=== PATIENT | female | born 1975 | race Caucasian/White ===

== ENCOUNTER 2019-09-26 19:34 | Emergency (ER) | payer BC ==
--- NOTE | 2019-09-26 20:24 | EDM.PDOC ---
ED HPI GENERAL MEDICAL PROBLEM - General Chief Complaint: Headache Stated Complaint: fever Time Seen by Provider: 09/26/19 19:48 Source of Information: Reports: Patient History Limitations: Reports: No Limitations - History of Present Illness INITIAL COMMENTS - FREE TEXT/NARRATIVE: TRIAGE NOTE -- Pt presents to ER for c/o fever and migraine headache. Pt is afebrile at presentation. Pt reports that Migraine is going on day #3. [ End ] Above-noted. Apparently long history of migraines. Takes medications for chronic management of this however she does not have Maxalt or similar medication to use acutely. Has not taken any medications other than her chronic medications in an effort to moderate the headache. It is associated with some nausea and photophobia. She did say she had a fever at home earlier today but details are a bit hazy. There is been no cough or other respiratory symptoms sore throat or other symptom of acute illness otherwise. She was treated for a urinary tract infection with the last dose of antibiotic 3 days ago. Does not know the name of antibiotic but it was taking it twice a day. She says she still feels a little "tingling" on void. No back pain or flank pain. Patient has not taken Tylenol ibuprofen or any other antipyretic for her fever. Noted to be afebrile on arrival. She has not taken an NSAID for her headache either. Frontal Headache Pain Score (Numeric/FACES): 7 - Related Data Allergies Allergy/AdvReac Type Severity Reaction Status Date / Time diphenhydramine Allergy Severe Other Verified 09/26/19 19:48 [From Benadryl] divalproex sodium Allergy Severe Hallucinati Verified 09/26/19 19:48 [From Depakote] ons prednisone Allergy Severe Other Verified 09/26/19 19:48 Home Meds: Home Meds Ascorbic Acid/Multivit-Min [Emergen-C 1,000 mg Packet] 1 pack PO DAILY 09/26/19 [History] Biotin/Keratin [Biotin Plus Keratin Tablet] 1 tab PO DAILY 09/26/19 [History] Cyclobenzaprine [Flexeril] 1 tab PO DAILY 09/26/19 [History] FLUoxetine [PROzac] 1 cap PO DAILY 09/26/19 [History] Famotidine 1 tab PO DAILY 09/26/19 [History] Gabapentin [Neurontin] 1 tab PO DAILY 09/26/19 [History] Magnesium Oxide [Magnesium] 1 tab PO DAILY 09/26/19 [History] Melatonin 1 tab PO BEDTIME 09/26/19 [History] Mv-Mn/Iron/Folic Acid/Herb 190 [Vitamin D3 Complete Caplet] 1 tab PO DAILY 09/25 [History] Nabumetone [Relafen Ds] 1 tab PO DAILY 09/26/19 [History] Naltrexone 1 tab PO DAILY 09/26/19 [History] Pantoprazole [ProTONIX] 1 tab PO DAILY 09/26/19 [History] Psyllium Husk 1 gram PO DAILY 09/26/19 [History] Thyroid [[place] Thyroid] 1 tab PO DAILY 09/26/19 [History] Topiramate 1 tab PO DAILY 09/26/19 [History] Vitamin B Complex [B Complex] 1 tab PO DAILY 09/26/19 [History] buPROPion [Wellbutrin SR] 1 tab PO DAILY 09/26/19 [History] lamoTRIgine [Lamotrigine ER] 1 tab PO DAILY 09/26/19 [History] rOPINIRole [Requip] 1 tab PO BEDTIME 09/26/19 [History] tiZANidine [Zanaflex] 1 tab PO DAILY PRN 09/26/19 [History] Past Medical History HEENT History: Reports: Impaired Vision Gastrointestinal History: Reports: GERD, Other (See Below) Other Gastrointestinal History: Abdominal Hernia 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: , 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 Musculoskeletal History: Reports: Fibromyalgia Neurological History: Reports: Migraines Psychiatric History: Reports: Anxiety, Bipolar, Depression Endocrine/Metabolic History: Reports: Hypothyroidism Dermatologic History: Reports: Eczema - Past Surgical History HEENT Surgical History: Reports: Oral Surgery Social & Family History - Family History Family Medical History: Noncontributory - Tobacco Use Smoking Status *Q: Never Smoker Second Hand Smoke Exposure: No - Caffeine Use Caffeine Use: Reports: Coffee - Recreational Drug Use Recreational Drug Use: Yes Drug Use in Last 12 Months: Yes Recreational Drug Type: Reports: Marijuana/Hashish Other Recreational Drug Type: Medical Marijuana Recreational Drug Use Frequency: Monthly ED ROS GENERAL - Review of Systems Review Of Systems: Comprehensive ROS is negative, except as noted in HPI. - Physical Exam Exam: See Below Exam Limited By: No Limitations General Appearance: Alert, WD/WN, No Apparent Distress, Other (Appears photophobic) Eye Exam: Bilateral Eye: EOMI, PERRL Ears: Normal External Exam Nose: Normal Inspection Throat/Mouth: Normal Inspection Head Exam: Atraumatic, Normocephalic Neck: Normal Inspection, Supple, Non-Tender, Full Range of Motion Respiratory/Chest: No Respiratory Distress, Lungs Clear, Normal Breath Sounds Cardiovascular: Regular Rate, Rhythm GI/Abdominal: Soft, Non-Tender Neuro Exam (Abbreviated): Alert, Oriented, Normal Cognition, No Motor/Sensory Deficits Back Exam: Normal Inspection. No: CVA Tenderness (L), CVA Tenderness (R) Extremities: Normal Inspection, Non-Tender Psychiatric: Normal Affect, Normal Mood Skin Exam: Warm, Dry Course - Vital Signs Last Recorded V/S: Last Vital Signs Temp 36.8 C 09/26/19 19:43 Pulse 86 09/26/19 19:43 Resp 20 09/26/19 19:43 BP 130/88 09/26/19 19:43 Pulse Ox 96 09/26/19 19:43 - Orders/Labs/Meds Orders: Active Orders 24 hr Category Date Time Status CULTURE BLOOD [BC] Stat Lab 09/26/19 20:47 Received CULTURE BLOOD [BC] Stat Lab 09/26/19 20:58 Received Sodium Chloride 0.9% [Normal Saline] 1,000 ml Med 09/26/19 20:45 Active IV ASDIRECTED Blood Culture x2 Reflex Set [OM.PC] Stat Oth 09/26/19 20:30 Ordered Medication Orders Sodium Chloride (Normal Saline) 1,000 mls @ 150 mls/hr IV ASDIRECTED CRISTHIAN Last Admin: 09/26/19 20:55 Dose: 150 mls/hr Labs: Laboratory Tests 09/26/19 09/26/19 09/26/19 Range/Units 20:58 20:58 21:28 WBC 6.23 (3.98-10.04) K/mm3 RBC 4.86 (3.98-5.22) M/mm3 Hgb 15.0 (11.2-15.7) gm/dl Hct 45.1 H (34.1-44.9) % MCV 92.8 (79.4-94.8) fl MCH 30.9 (25.6-32.2) pg MCHC 33.3 (32.2-35.5) g/dl RDW Std Deviation 43.6 (36.4-46.3) fL Plt Count 218 (182-369) K/mm3 MPV 9.4 (9.4-12.3) fl Neutrophils % (Manual) 87 H (40-60) % Band Neutrophils % 0 (0-10) % Lymphocytes % (Manual) 7 L (20-40) % Atypical Lymphs % 0 % Monocytes % (Manual) 3 (2-10) % Eosinophils % (Manual) 2 (0.7-5.8) % Basophils % (Manual) 1 (0.1-1.2) Platelet Estimate Adequate RBC Morph Comment Normal Sodium 136 (136-145) mEq/L Potassium 3.9 (3.5-5.1) mEq/L Chloride 101 (98-107) mEq/L Carbon Dioxide 24 (21-32) mEq/L Anion Gap 14.9 (5-15) BUN 9 (7-18) mg/dL Creatinine 1.1 H (0.55-1.02) mg/dL Est Cr Clr Drug Dosing 69.63 mL/min Estimated GFR (MDRD) 54 (>60) mL/min BUN/Creatinine Ratio 8.2 L (14-18) Glucose 120 H (74-106) mg/dL Calcium 9.4 (8.5-10.1) mg/dL Total Bilirubin 0.5 (0.2-1.0) mg/dL AST 42 H (15-37) U/L ALT 40 (14-59) U/L Alkaline Phosphatase 111 (46-116) U/L C-Reactive Protein 1.7 H* (<1.0) mg/dL Total Protein 8.3 H (6.4-8.2) g/dl Albumin 4.1 (3.4-5.0) g/dl Globulin 4.2 gm/dL Albumin/Globulin Ratio 1.0 (1-2) Urine Color Yellow (Yellow) Urine Appearance Clear (Clear) Urine pH 8.5 H (5.0-8.0) Ur Specific [place] 1.020 (1.005-1.030) Urine Protein Negative (Negative) Urine Glucose (UA) Negative (Negative) Urine Ketones Negative (Negative) Urine Occult Blood Negative (Negative) Urine Nitrite Negative (Negative) Urine Bilirubin Negative (Negative) Urine Urobilinogen 1.0 (0.2-1.0) Ur Leukocyte Esterase Negative (Negative) Urine Opiates Screen (GTFTZX=191) Ur Buprenorphine Scrn (CUTOFF=10) Ur Oxycodone Screen (UBD5NW=015) Urine Methadone Screen (RXYSBK=501) Ur Propoxyphene Screen (WBPOUC=093) Ur Barbiturates Screen (EKSMBF=850) Ur Tricyclics Screen (NSKBSN=736) Ur Phencyclidine Scrn (CUTOFF=25) Ur Amphetamine Screen (UAAXVW=202) U Methamphetamines Scrn (OIKLYC=162) U Benzodiazepines Scrn (XLTUFP=656) U Cocaine Metab Screen (XTDWYO=726) U Marijuana (THC) Screen (CUTOFF=50) 09/26/19 Range/Units 21:28 WBC (3.98-10.04) K/mm3 RBC (3.98-5.22) M/mm3 Hgb (11.2-15.7) gm/dl Hct (34.1-44.9) % MCV (79.4-94.8) fl MCH (25.6-32.2) pg MCHC (32.2-35.5) g/dl RDW Std Deviation (36.4-46.3) fL Plt Count (182-369) K/mm3 MPV (9.4-12.3) fl Neutrophils % (Manual) (40-60) % Band Neutrophils % (0-10) % Lymphocytes % (Manual) (20-40) % Atypical Lymphs % % Monocytes % (Manual) (2-10) % Eosinophils % (Manual) (0.7-5.8) % Basophils % (Manual) (0.1-1.2) Platelet Estimate RBC Morph Comment Sodium (136-145) mEq/L Potassium (3.5-5.1) mEq/L Chloride (98-107) mEq/L Carbon Dioxide (21-32) mEq/L Anion Gap (5-15) BUN (7-18) mg/dL Creatinine (0.55-1.02) mg/dL Est Cr Clr Drug Dosing mL/min Estimated GFR (MDRD) (>60) mL/min BUN/Creatinine Ratio (14-18) Glucose (74-106) mg/dL Calcium (8.5-10.1) mg/dL Total Bilirubin (0.2-1.0) mg/dL AST (15-37) U/L ALT (14-59) U/L Alkaline Phosphatase (46-116) U/L C-Reactive Protein (<1.0) mg/dL Total Protein (6.4-8.2) g/dl Albumin (3.4-5.0) g/dl Globulin gm/dL Albumin/Globulin Ratio (1-2) Urine Color (Yellow) Urine Appearance (Clear) Urine pH (5.0-8.0) Ur Specific [place] (1.005-1.030) Urine Protein (Negative) Urine Glucose (UA) (Negative) Urine Ketones (Negative) Urine Occult Blood (Negative) Urine Nitrite (Negative) Urine Bilirubin (Negative) Urine Urobilinogen (0.2-1.0) Ur Leukocyte Esterase (Negative) Urine Opiates Screen Negative (DJOJCJ=360) Ur Buprenorphine Scrn Negative (CUTOFF=10) Ur Oxycodone Screen Negative (YUY2ZR=129) Urine Methadone Screen Negative (NIHOSW=335) Ur Propoxyphene Screen Negative (DJCYZQ=859) Ur Barbiturates Screen Negative (YKSTVV=471) Ur Tricyclics Screen Negative (INIKEU=857) Ur Phencyclidine Scrn Negative (CUTOFF=25) Ur Amphetamine Screen Negative (UQBJRX=600) U Methamphetamines Scrn Negative (QICOWY=031) U Benzodiazepines Scrn Negative (FYDAHK=345) U Cocaine Metab Screen Negative (FRKMUO=554) U Marijuana (THC) Screen Negative (CUTOFF=50) Meds: Medications Generic Name Dose Route Start Last Admin Trade Name Freq PRN Reason Stop Dose Admin Sodium Chloride 1,000 mls @ 150 mls/hr 09/26/19 20:45 09/26/19 20:55 Normal Saline IV 150 mls/hr ASDIRECTED CRISTHIAN Administration Discontinued Medications Generic Name Dose Route Start Last Admin Trade Name Freq PRN Reason Stop Dose Admin Lorazepam 2 mg 09/26/19 22:16 09/26/19 22:22 Ativan IVPUSH 09/26/19 22:17 2 mg ONETIME ONE Administration Metoclopramide HCl 10 mg 09/26/19 20:34 09/26/19 20:55 Reglan IVPUSH 09/26/19 20:35 10 mg ONETIME ONE Administration Metoclopramide HCl 10 mg 09/26/19 21:32 09/26/19 21:37 Reglan IVPUSH 09/26/19 21:33 10 mg ONETIME ONE Administration - Re-Assessments/Exams Free Text/Narrative Re-Assessment/Exam: 09/26/19 22:40 The patient received 210 mg doses of Reglan with resolution of her headache. She asked for something for anxiety and Ativan was given prior to discharge. Discussed fully with patient and her fitness center attendant. There is no evidence of a nidus of infection. There is been no fever in the ER. No salient lab abnormals except for mild elevation of C-reactive protein and a slight left shift without bandemia and normal white count on the CBC. Chest x-ray negative. Urinalysis does not reflect any evidence of UTI. Instructions to patient and fitness center attendant below. Patient will be staying with her fitness center attendant at least for tonight and will be observed closely. Departure - Departure Time of Disposition: 22:41 Disposition: Home, Self-Care 01 Condition: Good Clinical Impression: History of fever, Anxiety Headache Qualifiers: Headache type: unspecified Headache chronicity pattern: acute headache Intractability: not intractable Qualified Code(s): R51 - Headache - Discharge Information *PRESCRIPTION DRUG MONITORING PROGRAM REVIEWED*: Not Applicable *COPY OF PRESCRIPTION DRUG MONITORING REPORT IN PATIENT TAB: Not Applicable Referrals: Sue Blevins PA-C [Primary Care Provider] - Forms: ED Department Discharge Additional Instructions: You have a history of fever and have been treated for a headache. There is no sign of any infectious process producing a fever and you did not have a fever in the emergency department. White blood count is normal on the CBC. Urinalysis is normal. Chest x-ray is negative. Physical exam not suggestive of any acute infectious process. However if there is a subsequent fever that is a temperature of 100 or greater return to the ER immediately. Return for any cough pain on urination or any troubling symptom you may have. Recommend close follow-up by primary. Sepsis Event Note (ED) - Evaluation Sepsis Screening Result: No Definite Risk - Focused Exam Vital Signs: Vital Signs Temp Pulse Resp BP Pulse Ox 09/26/19 19:43 36.8 C 86 20 130/88 96 - My Orders Last 24 Hours: My Active Orders 09/26/19 20:30 Blood Culture x2 Reflex Set [OM.PC] Stat 09/26/19 20:45 Sodium Chloride 0.9% [Normal Saline] 1,000 ml IV ASDIRECTED 09/26/19 20:47 CULTURE BLOOD [BC] Stat 09/26/19 20:58 CULTURE BLOOD [BC] Stat - Assessment/Plan Last 24 Hours: My Active Orders 09/26/19 20:30 Blood Culture x2 Reflex Set [OM.PC] Stat 09/26/19 20:45 Sodium Chloride 0.9% [Normal Saline] 1,000 ml IV ASDIRECTED 09/26/19 20:47 CULTURE BLOOD [BC] Stat 09/26/19 20:58 CULTURE BLOOD [BC] Stat
[2019-09-26] MEDS ORDERED: Metoclopramide 10 MG/2 ML SDV IVPUSH ONE ×2 (20:34→21:32)
[2019-09-26] MEDS ORDERED: Sodium Chloride 0.9% 1,000 ML IV SCH (20:45)
--- NOTE | 2019-09-26 21:11 | CR ---
Chest: Portable view of the chest was obtained. Comparison: No previous chest imaging. Heart size and mediastinum are normal. Lungs are clear with no acute parenchymal change. Bony structures shows minimal scoliosis within the spine. Impression: 1. Nothing acute is appreciated on portable chest x-ray. Diagnostic code #1 This report was dictated in MDT
[2019-09-26] MEDS ORDERED: LORazepam 2 MG/ML SDV IVPUSH ONE (22:16)
== END 2019-09-26 23:00 | disposition home or self-care (01) ==
LOC: JD.ED 19:34
DX: R51 Headache (principal); F41.9 Anxiety disorder, unspecified; Z88.8 Allergy status to other drugs, medicaments and biological substances; Z79.899 Other long term (current) drug therapy; K21.9 Gastro-esophageal reflux disease without esophagitis; F31.9 Bipolar disorder, unspecified
CPT/HCPCS: 36415; 71045; 80053; 80306; 81003; 85007; 85027; 86140; 87040; 96374; 96375; 96376; 99284; J2060; J2765; J7030

== ENCOUNTER 2019-09-29 09:27 | Emergency (ER) | payer BC ==
--- NOTE | 2019-09-29 09:50 | EDM.PDOC ---
ED HPI GENERAL MEDICAL PROBLEM - General Chief Complaint: Headache Stated Complaint: MIGRAINE Time Seen by Provider: 09/29/19 09:45 - History of Present Illness INITIAL COMMENTS - FREE TEXT/NARRATIVE: 44-year-old female presents the emergency room with a continued migraine headache. This headache is now been going on 6 or 7 days. She was seen here 2 days ago treated with Ativan 2 mg Reglan 10 mg x 2 and did a little bit better she went home and got some rest but the headache did not resolve she was seen in the clinic yesterday and was given Toradol 60 mg IM and a prescription for Zofran and advised to fish bait picker some riboflavin. They did fish bait picker the riboflavin however they did not get the prescription for the Zofran filled. The patient takes medication to help prevent these headaches. It just states that she takes Relafen in her med list however she has not taken this in quite a long time. This headache is associated with photophobia significant nausea occasional vomiting and she just generally feels awful at this point the headache seems to be more generalized and cannot get a clear history to decide which side is worse. Headache Pain Score (Numeric/FACES): 8 - Related Data Allergies Allergy/AdvReac Type Severity Reaction Status Date / Time diphenhydramine Allergy Severe Other Verified 09/29/19 09:42 [From Benadryl] divalproex sodium Allergy Severe Hallucinati Verified 09/29/19 09:42 [From Depakote] ons prednisone Allergy Severe Other Verified 09/29/19 09:42 Home Meds: Home Meds Ascorbic Acid/Multivit-Min [Emergen-C 1,000 mg Packet] 1 pack PO DAILY 09/26/19 [History] Biotin/Keratin [Biotin Plus Keratin Tablet] 1 tab PO DAILY 09/26/19 [History] Cyclobenzaprine [Flexeril] 1 tab PO DAILY 09/26/19 [History] FLUoxetine [PROzac] 1 cap PO DAILY 09/26/19 [History] Famotidine 1 tab PO DAILY 09/26/19 [History] Gabapentin [Neurontin] 1 tab PO DAILY 09/26/19 [History] Magnesium Oxide [Magnesium] 1 tab PO DAILY 09/26/19 [History] Melatonin 1 tab PO BEDTIME 09/26/19 [History] Mv-Mn/Iron/Folic Acid/Herb 190 [Vitamin D3 Complete Caplet] 1 tab PO DAILY 09/25 [History] Nabumetone [Relafen Ds] 1 tab PO DAILY 09/26/19 [History] Naltrexone 1 tab PO DAILY 09/26/19 [History] Pantoprazole [ProTONIX] 1 tab PO DAILY 09/26/19 [History] Psyllium Husk 1 gram PO DAILY 09/26/19 [History] Thyroid [[place] Thyroid] 1 tab PO DAILY 09/26/19 [History] Topiramate 1 tab PO DAILY 09/26/19 [History] Vitamin B Complex [B Complex] 1 tab PO DAILY 09/26/19 [History] buPROPion [Wellbutrin SR] 1 tab PO DAILY 09/26/19 [History] lamoTRIgine [Lamotrigine ER] 1 tab PO DAILY 09/26/19 [History] rOPINIRole [Requip] 1 tab PO BEDTIME 09/26/19 [History] tiZANidine [Zanaflex] 1 tab PO DAILY PRN 09/26/19 [History] Past Medical History HEENT History: Reports: Impaired Vision Gastrointestinal History: Reports: GERD Other Gastrointestinal History: Abdominal Hernia 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: , 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 Musculoskeletal History: Reports: Fibromyalgia Neurological History: Reports: Migraines Psychiatric History: Reports: Anxiety, Bipolar, Depression Endocrine/Metabolic History: Reports: Hypothyroidism Dermatologic History: Reports: Eczema - Past Surgical History HEENT Surgical History: Reports: Oral Surgery Social & Family History - Family History Family Medical History: Noncontributory - Tobacco Use Smoking Status *Q: Never Smoker - Caffeine Use Caffeine Use: Reports: Coffee - Recreational Drug Use Recreational Drug Use: No ED ROS GENERAL - Review of Systems Review Of Systems: See Below Constitutional: Reports: Fever (She complains of fevers when she was seen here 2 nights ago however no recent fever activity) HEENT: Reports: No Symptoms Respiratory: Reports: No Symptoms Cardiovascular: Reports: No Symptoms Endocrine: Reports: No Symptoms GI/Abdominal: Reports: Nausea, Vomiting, Other (She gets a little bit of discomfort before and after vomiting). Denies: Abdominal Pain, Constipation, Diarrhea : Reports: No Symptoms Musculoskeletal: Reports: No Symptoms. Denies: Neck Pain Skin: Reports: No Symptoms Neurological: Reports: Headache Psychiatric: Reports: Anxiety (Mild) Hematologic/Lymphatic: Reports: No Symptoms Immunologic: Reports: No Symptoms - Physical Exam Exam: See Below Exam Limited By: Other (She is photophobic and a little slow to respond) General Appearance: Moderate Distress (From the nausea however she is cooperative during the course the exam) Eye Exam: Bilateral Eye: EOMI, Normal Inspection, PERRL Ears: Normal External Exam, Normal Canal, Hearing Grossly Normal, Normal TMs Nose: Normal Inspection, Normal Mucosa, No Blood Throat/Mouth: Normal Inspection, Normal Lips, Normal Teeth, Normal Gums, Normal Oropharynx, Normal Voice, No Airway Compromise, Other (Mucous membranes are slightly dry) Head Exam: Atraumatic, Normocephalic Neck: Normal Inspection, Supple, Non-Tender, Full Range of Motion, Other (No nuchal rigidity). No: Lymphadenopathy (L), Lymphadenopathy (R), Tender Midline Respiratory/Chest: No Respiratory Distress, Lungs Clear, Normal Breath Sounds Cardiovascular: Regular Rate, Rhythm, No Edema, No Murmur GI/Abdominal: Normal Bowel Sounds, Soft, Non-Tender Rectal (Female) Exam: Other (Cranial nerves II through XII grossly intact all muscle groups in the upper and lower extremities are equal and appropriate bilaterally. Cerebellar testing is normal. Deep tendon reflexes are equal and appropriate brachioradialis and patella tendons bilaterally) Back Exam: Normal Inspection. No: CVA Tenderness (L), CVA Tenderness (R) Extremities: Normal Inspection, No Pedal Edema Course - Vital Signs Last Recorded V/S: Last Vital Signs Temp 37.1 C 09/29/19 09:39 Pulse 73 09/29/19 09:39 Resp 16 09/29/19 09:39 BP 116/66 09/29/19 09:39 Pulse Ox 94 L 09/29/19 09:39 - Orders/Labs/Meds Orders: Active Orders 24 hr Category Date Time Status Head wo Cont [CT] Stat Exams 09/29/19 10:19 Taken Meds: Medications Discontinued Medications Generic Name Dose Route Start Last Admin Trade Name Marleni PRN Reason Stop Dose Admin Lactated Ringer's 1,000 mls @ 999 mls/hr 09/29/19 10:05 09/29/19 10:32 Ringers, Lactated IV 09/29/19 11:05 999 mls/hr .BOLUS ONE Administration Ketorolac Tromethamine 30 mg 09/29/19 10:05 09/29/19 10:30 Toradol IVPUSH 09/29/19 10:06 30 mg ONETIME ONE Administration Lorazepam 1 mg 09/29/19 10:05 09/29/19 10:28 Ativan IVPUSH 09/29/19 10:06 1 mg ONETIME ONE Administration Ondansetron HCl 4 mg 09/29/19 10:05 09/29/19 10:26 Zofran IVPUSH 09/29/19 10:06 4 mg ONETIME ONE Administration - Re-Assessments/Exams Free Text/Narrative Re-Assessment/Exam: 09/29/19 12:[address] is unremarkable for any acute changes. The patient had a very favorable response to IV fluids liter of LR 30 mg of Toradol 1 mg of Ativan and 4 mg of Zofran. She was given a prescription for Zofran that her significant other just had filled. The patient is at least 60% better and would like to go home and get some rest Departure - Departure Time of Disposition: 12:04 Disposition: Home, Self-Care 01 Clinical Impression: Migraine - Discharge Information Referrals: Sue Blevins PA-C [Primary Care Provider] - Forms: ED Department Discharge Additional Instructions: Return to the emergency room with any questions problems or worsening symptoms. Go straight home and get some sleep. Use the Zofran, the nausea and vomiting medication and every 4-6 hours as needed. Even though your feeling better stick to a clear liquid diet for the rest of today then carefully advance it tomorrow. Continue to push lots of fluids. Follow-up with your regular healthcare provider and discuss the possibility of getting on some medication to take immediately when these headaches start Sepsis Event Note (ED) - Evaluation Sepsis Screening Result: No Definite Risk - Focused Exam Vital Signs: Vital Signs Temp Pulse Resp BP Pulse Ox 09/29/19 09:39 37.1 C 73 16 116/66 94 L - My Orders Last 24 Hours: My Active Orders 09/29/19 10:19 Head wo Cont [CT] Stat - Assessment/Plan Last 24 Hours: My Active Orders 09/29/19 10:19 Head wo Cont [CT] Stat
[2019-09-29] MEDS ORDERED: LORazepam 2 MG/ML SDV IVPUSH ONE (10:05)
[2019-09-29] MEDS ORDERED: Ketorolac 30 MG/ML SDV IVPUSH ONE (10:05)
[2019-09-29] MEDS ORDERED: Ondansetron 4 MG/2 ML SDV IVPUSH ONE (10:05)
[2019-09-29] MEDS ORDERED: Lactated Ringers 1,000 ML IV ONE (10:05)
--- NOTE | 2019-09-29 20:33 | CT ---
Head CT Comparison: Previous head CT study of 05/30/15. Technique: Multiple axial sections through the brain were obtained. Intravenous contrast was not used or mass-effect is seen. Findings: Ventricles along with basal cisterns and sulci over the convexities are within normal limits for the patient's age. No abnormal parenchymal densities are seen. No evidence of intracranial hemorrhage. No midline shift or mass-effect is seen. Bone window settings were reviewed. No acute calvarial finding is seen. Visualized mastoid sinuses and visualized paranasal sinuses are clear. Impression: 1. No acute intracranial abnormality is appreciated. Note: Considering the patient's symptoms, MRI could be considered to further evaluate. Diagnostic code #1 This report was dictated in MDT I agree with preliminary report from Carlos, finalized on 09/29/19, 12:18 PM Central Daylight Time
== END 2019-09-29 12:20 | disposition home or self-care (01) ==
LOC: JD.ED 09:27
DX: G43.909 Migraine, unspecified, not intractable, without status migrainosus (principal); F41.9 Anxiety disorder, unspecified; F32.9 Major depressive disorder, single episode, unspecified; K21.9 Gastro-esophageal reflux disease without esophagitis; E03.9 Hypothyroidism, unspecified; Z79.899 Other long term (current) drug therapy; Z88.8 Allergy status to other drugs, medicaments and biological substances
CPT/HCPCS: 70450; 96361; 96374; 96375; 99284; J1885; J2060; J2405; J7120; 99283

== ENCOUNTER 2020-10-06 16:36 | Emergency (ER) | payer BC ==
--- NOTE | 2020-10-06 16:52 | EDM.PDOC ---
ED HPI GENERAL MEDICAL PROBLEM - General Chief Complaint: Upper Extremity Injury/Pain Stated Complaint: L HAND INJURY Time Seen by Provider: 10/06/20 16:47 Source of Information: Reports: Patient History Limitations: Reports: No Limitations - History of Present Illness INITIAL COMMENTS - FREE TEXT/NARRATIVE: 45-year-old female presents to the ED after suffering a trip and a fall on outstretched left hand. Injury occurred about 50 minutes before attending the ED. She is complaining of pain in the mid aspect of her left hand and on the palmar aspect there is bruising in no man's land and feet over the thenar eminence of the left hand. She has very limited ability to flex both her third and fourth fingers. She believes that her third and fourth fingers were splayed apart when she landed on the floor. She denies any other injuries. She reports she is scheduled for surgery for capsulotomy and tenodesis on her left thumb on Tuesday next week with Dr[facility] [place]. Onset: Today, Sudden Onset Date: 10/06/20 Onset Time: 15:55 Duration: Minutes: Location: Reports: Upper Extremity, Left (Left hand injury) Quality: Reports: Ache, Throbbing Severity: Mild Improves with: Reports: Rest Worsens with: Reports: Movement (Attempt to move the third or fourth fingers) Context: Reports: Trauma (Trip and fall on outstretched left hand). 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 divalproex sodium Allergy Severe Hallucinati Verified 10/06/20 16:45 [From Depakote] ons prednisone Allergy Severe Severe Verified 10/06/20 16:45 mood swings. Home Meds: Home Meds Ascorbic Acid/Multivit-Min [Emergen-C 1,000 mg Packet] 1 pack PO DAILY 09/26/19 [History] Biotin/Keratin [Biotin Plus Keratin Tablet] 1 tab PO DAILY 09/26/19 [History] Cyclobenzaprine [Flexeril] 1 tab PO DAILY 09/26/19 [History] FLUoxetine [PROzac] 1 cap PO DAILY 09/26/19 [History] Famotidine 1 tab PO DAILY 09/26/19 [History] Gabapentin [Neurontin] 1 tab PO DAILY 09/26/19 [History] Magnesium Oxide [Magnesium] 1 tab PO DAILY 09/26/19 [History] Melatonin 1 tab PO BEDTIME 09/26/19 [History] Mv-Mn/Iron/Folic Acid/Herb 190 [Vitamin D3 Complete Caplet] 1 tab PO DAILY 09/26/19 [History] Nabumetone [Relafen Ds] 1 tab PO DAILY 09/26/19 [History] Naltrexone 1 tab PO DAILY 09/26/19 [History] Pantoprazole [ProTONIX] 1 tab PO DAILY 09/26/19 [History] Psyllium Husk 1 gram PO DAILY 09/26/19 [History] Thyroid [Cookson Thyroid] 1 tab PO DAILY 09/26/19 [History] Topiramate 1 tab PO DAILY 09/26/19 [History] Vitamin B Complex [B Complex] 1 tab PO DAILY 09/26/19 [History] buPROPion [Wellbutrin SR] 1 tab PO DAILY 09/26/19 [History] lamoTRIgine [Lamotrigine ER] 1 tab PO DAILY 09/26/19 [History] rOPINIRole [Requip] 1 tab PO BEDTIME 09/26/19 [History] tiZANidine [Zanaflex] 1 tab PO DAILY PRN 09/26/19 [History] Past Medical History HEENT History: Reports: Impaired Vision Gastrointestinal History: Reports: GERD Other Gastrointestinal History: Abdominal Hernia [employer]PER[employer]OR History: Reports: , Spontaneous Musculoskeletal History: Reports: Fibromyalgia Neurological History: Reports: Migraines Psychiatric History: Reports: Anxiety, Bipolar, Depression Endocrine/Metabolic History: Reports: Hypothyroidism, Obesity/BMI 30+ Dermatologic History: Reports: Eczema - Past Surgical History HEENT Surgical History: Reports: Oral Surgery Social & Family History - Family History Family Medical History: No Pertinent Family History - Tobacco Use Tobacco Use Status *Q: Never Tobacco User Second Hand Smoke Exposure: No - Caffeine Use Caffeine Use: Reports: Coffee, Energy Drinks, Soda, Tea - Recreational Drug Use Recreational Drug Use: No - Living Situation & Occupation Living situation: Reports: 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 Adhesive capsulitis left thumb first metacarpal joint.) Skin: Reports: No Symptoms Neurological: Reports: No Symptoms Psychiatric: Reports: No Symptoms ED EXAM, GENERAL - Physical Exam Exam: See Below Exam Limited By: No Limitations General Appearance: Alert, WD/WN, No Apparent Distress, Other (Temperature is 36.0. Heart rate 86 and sinus. Respiratory to 16 with O2 sats of 100% room air. BP 151/84.) Eye Exam: Bilateral Eye: Normal Inspection (No scleral icterus or blepharal pallor.), PERRL Throat/Mouth: Normal Inspection, Normal Lips, Normal Teeth, Normal Oropharynx Head: Atraumatic, Normocephalic. No: Facial Swelling, Facial Tenderness Neck: Normal Inspection, Supple, Non-Tender, Full Range of Motion. No: Lymphadenopathy (L), Lymphadenopathy (R) Cardiovascular: Normal Peripheral Pulses, Regular Rate, Rhythm, No Edema, No Gallop, No Murmur, No Rub Peripheral Pulses: 3+: Carotid (L), Carotid (R), Posterior Tibial (L), Posterior Tibial (R), Dorsalis Pedis (L), Dorsalis Pedis (R) Extremities: Other (Examination was limited to the left hand that was injured. She does have some ecchymoses developing in no man's land in the distribution of the central palmar aspect of her left hand. There also is some swelling and ecchymosis developing in the thenar eminence of the left hand. She already has ve) Neurological: Alert, Oriented, CN II-XII Intact, Normal Cognition Psychiatric: Normal Affect, Normal Mood Skin Exam: Warm, Dry, Intact, Ecchymosis (Ecchymoses palmar aspect left hand.) Course - Vital Signs Last Recorded V/S: Last Vital Signs Temp 36.0 C L 06/21/21 16:43 Pulse 86 10/06/20 16:43 Resp 16 10/06/20 16:43 BP 151/84 H 10/06/20 16:43 Pulse Ox 100 10/06/20 16:43 - Radiology Interpretation Free Text/Narrative:: 45-year-old female presents to the ED for evaluation of injury to her left hand after tripping and falling about an hour ago. She has very limited ability to flex her fourth and third fingers due to pain in the mid left hand. There is ecchymoses and no man's land in the central palm and over the thenar eminence of the left hand. She has limited movement of her left thumb due to adhesive capsulitis at the first MCP joint. Infectious scheduled for surgery on her left thumb by Dr. Trotter hand surgeon on Tuesday next week. Plan : 3 views of the left hand to be done. - Re-Assessments/Exams Free Text/Narrative Re-Assessment/Exam: 10/06/20 17:15: X-ray of the left hand reveals a corner fracture of the proximal phalanx of the right fourth finger and 2 fractures are identified within the shaft of the right third metacarpal bone. Position and anatomical alignment are good. Plan will be to place her in a Ortho-Glass ulnar gutter and radial gutter splint below elbow. 10/06/20 17:50: Ulnar gutter splints have been placed as well as a radial gutter Ortho-Glass splint left hand to immobilize hand fractures. She is scheduled for surgery on her left thumb on Tuesday by Dr. Trotter in [place]. I [facility]. She will call them tomorrow to see if the surgery can still be carried out as well as possible pinning of the left third metacarpal. She will use Motrin 600 mg every 6 hours necessary for pain relief. Departure - Departure Time of Disposition: 17:51 Disposition: Home, Self-Care 01 Condition: Fair Clinical Impression: Fracture of third metacarpal bone of left hand Qualifiers: Encounter type: initial encounter Fracture type: closed Metacarpal location: shaft Fracture alignment: nondisplaced Qualified Code(s): S62.353A - Nondisplaced fracture of shaft of third metacarpal bone, left hand, initial encounter for closed fracture Fracture of proximal phalanx of digit of left hand Qualifiers: Encounter type: initial encounter Fracture type: closed Qualified Code(s): S62.619A - Displaced fracture of proximal phalanx of unspecified finger, initial encounter for closed fracture Fracture of metacarpal bone Qualifiers: Encounter type: initial encounter Metacarpal bone: third - Discharge Information *PRESCRIPTION DRUG MONITORING PROGRAM REVIEWED*: Not Applicable *COPY OF PRESCRIPTION DRUG MONITORING REPORT IN PATIENT TAB: Not Applicable Instructions: Cast or Splint Care, Adult, [id number], Metacarpal Fracture, [id number] Referrals: Sue Blevins PA-C [Primary Care Provider] - Forms: ED Department Discharge Additional Instructions: Evaluation in the emergency room today in regards to a fall with acute injury to the left hand. On examination pain was present in the mid aspect of the hand as well as some bruising in the palmar aspect of the hand and over the thenar eminence around the base of the thumb. An x-ray of the hand reveals a corner fracture which is undisplaced off of the proximal phalanx of the fourth finger. It also reveals a spiral fracture of the shaft of the third metacarpal bone in the mid hand. Position is anatomical. A ulnar gutter and radial gutter splints were applied in the ED to protect the fractures. I believe that your hand surgeon will go ahead with surgical procedure as planned on Tuesday next week in spite of these fractures. He may opt to place a pin in the third metacarpal bone at that time. Treatment is Motrin 600 mg every 6 hours needed to relieve pain and inflammation. Try and keep the left hand elevated above the level of your heart for the next 2 days to prevent swelling. You can try ice over the splint for 1/2-hour out of every 4 hours to help reduce swelling as well. Follow-up with Dr. Trotter your hand surgeon as [facility] in [place]. Of note I did send your hand x-rays done [facility] in [place]. Sepsis Event Note (ED) - Evaluation Sepsis Screening Result: No Definite Risk - Focused Exam Vital Signs: Vital Signs Temp Pulse Resp BP Pulse Ox 10/06/20 16:43 36.0 C L 86 16 151/84 H 100
--- NOTE | 2020-10-06 17:22 | CR ---
Left hand: 4 views of the left hand were obtained. Comparison: No prior hand study, prior left wrist MRI of 09/17/20. Disc spaces are fairly well preserved. Fracture is identified involving the corner base of the proximal phalanx of the fourth digit which is slightly displaced. Mildly comminuted fracture is noted within the shaft of the third metacarpal involving the mid and proximal regions. No additional osseous abnormality is appreciated. Soft tissue swelling is noted. Impression: 1. Fracture within the corner base of the proximal phalanx of the fourth finger and additional fracture within the mid and proximal shaft of the third metacarpal. 2. Soft tissue swelling. Diagnostic code #3
== END 2020-10-06 18:09 | disposition home or self-care (01) ==
LOC: JD.ED 16:36
DX: S62.353A Nondisplaced fracture of shaft of third metacarpal bone, left hand, initial encounter for closed fracture (principal); S62.615A Displaced fracture of proximal phalanx of left ring finger, initial encounter for closed fracture; K21.9 Gastro-esophageal reflux disease without esophagitis; E03.9 Hypothyroidism, unspecified; E66.9 Obesity, unspecified; Z68.35 Body mass index [BMI] 35.0-35.9, adult; Z88.8 Allergy status to other drugs, medicaments and biological substances; Z79.899 Other long term (current) drug therapy; W01.0XXA Fall on same level from slipping, tripping and stumbling without subsequent striking against object, initial encounter
CPT/HCPCS: 29125; 73130-26-LT; 73130-LT; 99283; 99283-25

== ENCOUNTER 2022-12-21 03:05 | Emergency (ER) | payer BC ==
[2022-12-21] MEDS ORDERED: Naproxen 500 MG Tab PO STA (03:48)
[2022-12-21] MEDS ORDERED: Orphenadrine 100 MG Tab.ER PO STA (03:48)
== END 2022-12-21 04:47 | disposition home or self-care (01) ==
LOC: JD.ED 03:05
DX: S46.912A Strain of unspecified muscle, fascia and tendon at shoulder and upper arm level, left arm, initial encounter (principal); M54.12 Radiculopathy, cervical region; K21.9 Gastro-esophageal reflux disease without esophagitis; E66.9 Obesity, unspecified; Z68.39 Body mass index [BMI] 39.0-39.9, adult; Z88.8 Allergy status to other drugs, medicaments and biological substances; Z79.899 Other long term (current) drug therapy; X58.XXXA Exposure to other specified factors, initial encounter
CPT/HCPCS: 71046; 99283; A9270

== ENCOUNTER 2023-04-20 17:02 | Emergency (ER) | payer BC ==
[2023-04-20] MEDS ORDERED: Sodium Chloride 0.9% 10 ML Syringe FLUSH PRN ×2 (18:05→18:36)
[2023-04-20] MEDS ORDERED: HYDROmorphone 0.5 MG/0.5 ML Syringe IVPUSH ONE (18:06)
[2023-04-20] MEDS ORDERED: Sodium Chloride 0.9% 1,000 ML IV SCH (18:15)
[2023-04-20] MEDS ORDERED: Iopamidol 755 Mg/ML 100 ML Bottle IVPUSH ONE (18:36)
[2023-04-20 18:38] LABS: BASOPHILS ABSOLUTE AUTO 0.1 K/mm3 (0.0-0.2); BASOPHILS PERCENT AUTO 0.4 % (0.0-1.0); EOSINOPHILS ABSOLUTE AUTO 0.2 K/mm3 (0.0-0.4); EOSINOPHILS PERCENT AUTO 1.4 % (0.0-6.0); HEMATOCRIT 41.2 % (37.0-47.0); HEMOGLOBIN 13.6 gm/dl (12.0-16.0); IMMATURE GRAN ABSOLUTE AUTO 0.05 K/mm3 (0.00-0.05); IMMATURE GRAN PERCENT AUTO 0.4 % (0.0-0.4); LYMPHOCYTES ABSOLUTE AUTO 2.1 K/mm3 (1.0-4.8); LYMPHOCYTES PERCENT AUTO 18.2 % (24.0-44.0); MEAN CORPUSCULAR HEMOGLOBIN 31.1 pg (28.0-32.0); MEAN CORPUSCULAR VOLUME 94.3 fl (83.0-99.0); MEAN PLATELET VOLUME 8.7 fl (9.4-12.3); MONOCYTES ABSOLUTE AUTO 0.8 K/mm3 (0.0-0.8); MONOCYTES PERCENT AUTO 6.5 % (0.0-8.0); NEUTROPHILS ABSOLUTE AUTO 8.5 K/mm3 (1.8-7.7); NEUTROPHILS PERCENT AUTO 73.1 % (41.0-71.0); PLATELET COUNT,PLT 341 K/mm3 (150-400); RED BLOOD CELL COUNT 4.37 M/mm3 (4.10-5.30); WHITE BLOOD CELL COUNT,WBC 11.69 K/mm3 (3.9-11.3)
[2023-04-20] MEDS ORDERED: Sodium Chloride 0.9% 100 ML IV SCH (18:45)
[2023-04-20 18:57] LABS: A/G RATIO 0.8 (1-2); ALANINE AMINOTRANSFERASE,ALT 27 U/L (14-59); ALBUMIN 3.3 g/dl (3.4-5.0); ALKALINE PHOSPHATASE 155 U/L (46-116); ANION GAP 9.7 (5-15); ASPARTATE AMNIOTRANSFERASE,AST 20 U/L (15-37); BILIRUBIN TOTAL 0.4 mg/dL (0.2-1.0); BLOOD UREA NITROGEN,BUN 10 mg/dL (7-18); CALCIUM 9.5 mg/dL (8.5-10.1); CARBON DIOXIDE,CO2 32 mEq/L (21-32); CHLORIDE,CL 99 mEq/L (98-107); EST CRCL DRUG DOSING (CG) 71.67 mL/min; ESTIMATED GFR 71 mL/min (>60); GLUCOSE RANDOM 95 mg/dL (70-99); POTASSIUM,K 3.7 mEq/L (3.5-5.1); PROTEIN TOTAL,TP 7.6 g/dl (6.4-8.2); SODIUM,NA 137 mEq/L (136-145); TROPONIN I HIGH SENSITIVITY < 4 pg/mL (<=51)
== END 2023-04-20 20:16 | disposition home or self-care (01) ==
LOC: JD.ED 17:02
DX: R07.89 Other chest pain (principal); E66.9 Obesity, unspecified; E03.9 Hypothyroidism, unspecified; Z88.8 Allergy status to other drugs, medicaments and biological substances; Z79.899 Other long term (current) drug therapy; Z90.710 Acquired absence of both cervix and uterus; Z68.39 Body mass index [BMI] 39.0-39.9, adult
CPT/HCPCS: 36415; 71275; 71275-26; 80053; 84484; 85025; 93005; 96374; 99285-25; J1170; J3490; J7030; Q9967

== ENCOUNTER 2024-12-23 21:42 | Emergency (ER) | payer BC ==
[2024-12-23 22:35] LABS: APPEARANCE,URINE SLT CLOUDY (Clear); GLUCOSE,URINE TRACE (Negative); OCCULT BLOOD,URINE 3+ (Negative)
[2024-12-23] MEDS ORDERED: Sodium Chloride 0.9% 10 ML Syringe FLUSH PRN (22:36)
[2024-12-23 22:39] LABS: BASOPHILS ABSOLUTE AUTO 0.0 K/mm3 (0.0-0.2); BASOPHILS PERCENT AUTO 0.4 % (0.0-1.0); EOSINOPHILS ABSOLUTE AUTO 0.2 K/mm3 (0.0-0.4); EOSINOPHILS PERCENT AUTO 1.8 % (0.0-6.0); IMMATURE GRAN ABSOLUTE AUTO 0.02 K/mm3 (0.00-0.05); IMMATURE GRAN PERCENT AUTO 0.2 % (0.0-0.4); LYMPHOCYTES ABSOLUTE AUTO 2.7 K/mm3 (1.0-4.8); LYMPHOCYTES PERCENT AUTO 32.2 % (24.0-44.0); MEAN PLATELET VOLUME 9.9 fl (9.4-12.3); MONOCYTES ABSOLUTE AUTO 0.7 K/mm3 (0.0-0.8); MONOCYTES PERCENT AUTO 7.9 % (0.0-8.0); NEUTROPHILS ABSOLUTE AUTO 4.7 K/mm3 (1.8-7.7); NEUTROPHILS PERCENT AUTO 57.5 % (41.0-71.0); NRBC ABSOLUTE 0.00 (0.00-0.02); NRBC PERCENT 0.0 % (0.0-0.2); PLATELET COUNT,PLT 416 K/mm3 (150-400); RED BLOOD CELL COUNT 4.43 M/mm3 (4.10-5.30); WHITE BLOOD CELL COUNT,WBC 8.22 K/mm3 (3.9-11.3)
[2024-12-23 22:44] LABS: WBC CLUMPS,URINE FEW /hpf (NOT SEEN)
[2024-12-23] MEDS: Ondansetron 4 MG/2 ML SDV IVPUSH ONE (22:44)
[2024-12-23 22:45] LABS: SQUAMOUS EPITHELIAL CELLS,UR 0-5 /hpf (0-5)
[2024-12-23 22:49] LABS: A/G RATIO 1.1 (1-2); ALANINE AMINOTRANSFERASE,ALT 24.0 U/L (14-59); ASPARTATE AMNIOTRANSFERASE,AST 21.0 U/L (15-37); BILIRUBIN TOTAL 0.5 mg/dL (0.2-1.0); BLOOD UREA NITROGEN,BUN 10.0 mg/dL (7-18); CARBON DIOXIDE,CO2 30.0 mEq/L (21-32); CHLORIDE,CL 103.0 mEq/L (98-107); CREATININE 0.9 mg/dL (0.55-1.02); EST CRCL DRUG DOSING (CG) 80.76 mL/min; ESTIMATED GFR 79.0 mL/min (>60); GLUCOSE RANDOM 74.0 mg/dL (70-99); POTASSIUM,K 3.8 mEq/L (3.5-5.1); PROTEIN TOTAL,TP 7.4 g/dl (6.4-8.2); SODIUM,NA 140.0 mEq/L (136-145)
[2024-12-23] MEDS: Iopamidol 612 MG/ML 100 ML Bottle IVPUSH ONE (22:59)
[2024-12-24] MEDS: Phenazopyridine 95 MG Tab PO SCH (00:02)
[2024-12-24] MEDS: Phenazopyridine 95 MG Tab ONE (00:05)
[2024-12-24] MEDS ORDERED: Phenazopyridine 95 MG Tab PO SCH (09:00)
== END 2024-12-24 00:15 | disposition home or self-care (01) ==
LOC: JD.ED 21:42
DX: N39.0 Urinary tract infection, site not specified (principal); K21.9 Gastro-esophageal reflux disease without esophagitis; E03.9 Hypothyroidism, unspecified; Z88.8 Allergy status to other drugs, medicaments and biological substances; Z79.899 Other long term (current) drug therapy
CPT/HCPCS: 36415; 74177; 80053; 81001; 81025; 85025; 87086; 96365; 96375; 99284; A9270; J0696; J1171; J2405; Q9967